=== PATIENT | female | born 1990 | race Two or more races ===

== ENCOUNTER 2025-02-24 12:13 | Emergency (ER) | payer BC ==
[~2025-02-24] VITALS: Ht 157.5 cm; Wt 68.9 kg
[~2025-02-24 12:13] MED LIST: ADVIL200 M1 PO; AMOX1TAB12 PO; AMPICILLIN TRI250 MG PO; FERRO-PLEX PO
[2025-02-24] MEDS ORDERED: PRIMACARE SOFT1 EACH (13:25)
[2025-02-24 18:09] LABS: BASO % 0.9 % (0.1-1.2); EOS # 0.24 (0.04-0.54); EOS % 1.8 % (0.7-7.0); HEMATOCRIT 36.1 % (34.1-44.9); HEMOGLOBIN 11.8 g/dL (11.2-15.7); LYMPH # 2.09 (1.18-3.74); LYMPH % 15.9 % (19.3-53.1); MEAN CORPUSCULAR HEMOGLOBIN 25.7 pg (25.6-32.2); MONO % 7.6 % (4.7-12.5); NEUT # 9.67 (1.56-6.13); NEUT % 73.4 % (34.0-71.1); PLATELET COUNT 349 K/uL (163-369); RED CELL DISTRIBUTION WIDTH 16.3 % (11.6-14.4)
[2025-02-24 18:28] LABS: CREATININE SERUM 0.53 mg/dL (0.55-1.02); GFR 132.85
[2025-02-24 19:12] LABS: PH,URINE 6.5 (5.0-8.0); URINE APPEARANCE Clear; URINE BILIRRUBIN Negative (NEGATIVE); URINE COLOR Yellow; URINE GLUCOSE Negative (NEGATIVE); URINE LEUKOCYTE Negative; URINE NITRATE Negative; URINE PROTEIN Negative (NEGATIVE); URINE UROBILINOGEN 0.2 E.U./dl
[2025-02-24 19:16] LABS: URINE EPITHELIAL CELLS 3.3 uL (0.0-38.8); URINE RBC 8.2 uL (0.0-20.8); URINE WBC 4.4 uL (0.0-23.2)
[2025-02-24 20:27] LABS: URINE BLOOD TRACE; URINE KETONE 40 (NEGATIVE)
== END 2025-02-24 20:48 | disposition home or self-care (01) ==
LOC: ER 12:51
PROVIDERS: General Practice
DX: O03.9 Complete or unspecified spontaneous abortion without complication (principal); J44.9 Chronic obstructive pulmonary disease, unspecified; E11.9 Type 2 diabetes mellitus without complications

== ENCOUNTER 2025-04-11 10:28 | Outpatient (CLI) | payer OTHER ==
[~2025-04-11 10:28] MED LIST changes: +PRIMACARE SOFT1 EACH
== END 2025-04-11 10:37 | disposition home or self-care (01) ==
LOC: MRI 10:28
PROVIDERS: ATTEND Student in an Organized Health Care Education/Training Program
DX: R10.2 Pelvic and perineal pain (principal)
CPT/HCPCS: 72196